=== PATIENT | female | born 1950 | race African-American/Black ===

== ENCOUNTER 2017-10-08 13:06 | Outpatient (CLI) | payer MEDICARE, BC | END 2017-10-08 13:07 | disposition home or self-care (01) | LOC: BICMAMMO 13:06 | PROVIDERS: ATTEND Internal Medicine | DX: Z12.31 Encounter for screening mammogram for malignant neoplasm of breast (principal) | CPT/HCPCS: 77063; 77067 ==

== ENCOUNTER 2018-10-20 12:48 | Outpatient (CLI) | payer MEDICARE, BC | END 2018-10-20 12:49 | disposition home or self-care (01) | LOC: BICMAMMO 12:48 | PROVIDERS: ATTEND Internal Medicine | DX: Z12.31 Encounter for screening mammogram for malignant neoplasm of breast (principal); R92.1 Mammographic calcification found on diagnostic imaging of breast | CPT/HCPCS: 77063; 77067 ==

== ENCOUNTER 2019-08-17 15:06 | Outpatient (CLI) | payer MEDICARE, BC ==
--- NOTE | 2019-08-17 15:46 | ULT ---
RENAL SONOGRAM: HISTORY: Abnormal renal function. COMPARISON: None. FINDINGS: The kidneys demonstrate a normal sonographic appearance bilaterally without evidence of a renal mass, renal calculus, or hydronephrosis. The right kidney measures 8.4 cm x 4.5 cm with the left kidney m easuring 9.1 cm x 5.3 cm. Incidental note is made of a large anechoic cystic lesion seen within the right hepatic lobe which me asures 3.4 cm in greatest dimensions and demonstrates sonographic characteristics most compatible wit h a cyst. Urinary bladder is not visualized, but the patient reportedly voided prior to this examination. Urin iris bladder is unable to be evaluated on this study. IMPRESSION: 1. Normal-appearing bilateral kidneys without renal cortical thinning or evidence of hydronephrosis. 2. Right hepatic lobe cyst. 3. Nonvisualization of the urinary bladder. POS: [facility]
== END 2019-08-17 15:07 | disposition home or self-care (01) ==
LOC: BICULT 15:06
PROVIDERS: ATTEND Internal Medicine
DX: R94.4 Abnormal results of kidney function studies (principal); K76.89 Other specified diseases of liver
CPT/HCPCS: 76770

== ENCOUNTER 2019-10-26 15:08 | Outpatient (CLI) | payer MEDICARE, BC ==
--- NOTE | 2019-10-26 16:55 | MMO ---
Bilateral MAMMO Bilat Screen [facility]. CLINICAL HISTORY: Patient is 68 years old and is seen for screening. The patient has no family history of breast cancer. The patient has no personal history of cancer. VIEWS: The views performed were: bilateral craniocaudal with tomosynthesis and bilateral mediolateral oblique with tomosynthesis. FILMS COMPARED: The present examination has been compared to prior imaging studies performed at [facility] on 10/03/2015, 10/06/2016, 10/08/2017 and 10/20/2018. This study has been interpreted with the assistance of computer-aided detection. MAMMOGRAM FINDINGS: There are scattered fibroglandular densities. There are stable benign appearing calcifications seen in both breasts. There are no suspicious masses, suspicious calcifications, or new areas of architectural distortion. IMPRESSION: THERE IS NO MAMMOGRAPHIC EVIDENCE OF MALIGNANCY. A ROUTINE FOLLOW-UP MAMMOGRAM IN 1 YEAR IS RECOMMENDED. THE RESULTS OF THIS EXAM WERE SENT TO THE PATIENT. ACR BI-RADS Category 2 - Benign finding MAMMOGRAPHY NOTE: 1. A negative mammogram report should not delay a biopsy if a dominant of clinically suspicious mass is present. 2. Approximately 10% to 15% of breast cancers are not detected by mammography. 3. Adenosis and dense breasts may obscure an underlying neoplasm. Reported by: DARRON POLK MD Electonically Signed: [id number]
== END 2019-10-26 15:09 | disposition home or self-care (01) ==
LOC: BICMAMMO 15:08
PROVIDERS: ATTEND Internal Medicine
DX: Z12.31 Encounter for screening mammogram for malignant neoplasm of breast (principal)
CPT/HCPCS: 77063; 77067

== ENCOUNTER 2020-10-28 15:41 | Outpatient (CLI) | payer MEDICARE, BC ==
--- NOTE | 2020-10-28 16:51 | MMO ---
Bilateral MAMMO Bilat Screen [facility]. CLINICAL HISTORY: Patient is 69 years old and is seen for screening. The patient has no family history of breast cancer. The patient has no personal history of cancer. VIEWS: The views performed were: bilateral craniocaudal with tomosynthesis and bilateral mediolateral oblique with tomosynthesis. FILMS COMPARED: The present examination has been compared to prior imaging studies performed at [facility] on 10/06/2016, 10/08/2017, 10/20/2018 and 10/26/2019. This study has been interpreted with the assistance of computer-aided detection. MAMMOGRAM FINDINGS: There are scattered fibroglandular densities. There are stable benign appearing calcifications seen in both breasts. There are no suspicious masses, suspicious calcifications, or new areas of architectural distortion. IMPRESSION: THERE IS NO MAMMOGRAPHIC EVIDENCE OF MALIGNANCY. A ROUTINE FOLLOW-UP MAMMOGRAM IN 1 YEAR IS RECOMMENDED. THE RESULTS OF THIS EXAM WERE SENT TO THE PATIENT. ACR BI-RADS Category 2 - Benign finding MAMMOGRAPHY NOTE: 1. A negative mammogram report should not delay a biopsy if a dominant of clinically suspicious mass is present. 2. Approximately 10% to 15% of breast cancers are not detected by mammography. 3. Adenosis and dense breasts may obscure an underlying neoplasm. Reported by: DARRON POLK MD Electonically Signed: [id number]
== END 2020-10-28 15:42 | disposition home or self-care (01) ==
LOC: BICMAMMO 15:41
PROVIDERS: ATTEND Internal Medicine
DX: Z12.31 Encounter for screening mammogram for malignant neoplasm of breast (principal)
CPT/HCPCS: 77063; 77067

== ENCOUNTER 2021-06-06 15:00 | Outpatient (CLI) | payer MEDICARE, BC | END 2021-06-06 15:01 | disposition home or self-care (01) | LOC: BICRAD 15:00 | PROVIDERS: ATTEND Internal Medicine | DX: M54.5 Low back pain (principal); R63.4 Abnormal weight loss | CPT/HCPCS: 77075 ==

== ENCOUNTER 2023-07-28 13:47 | Outpatient (CLI) | payer MEDICARE | END 2023-07-28 13:48 | disposition home or self-care (01) | LOC: BICMAMMO 13:47 | PROVIDERS: ATTEND Internal Medicine | DX: Z12.31 Encounter for screening mammogram for malignant neoplasm of breast (principal) | CPT/HCPCS: 77063; 77067 ==